=== PATIENT | male | born 1945 | race Caucasian/White ===

== ENCOUNTER 2018-08-18 06:18 | Day surgery (SDC) | payer MEDICARE, OTHER ==
[~2018-08-18 06:18] MED LIST: Cyclopentolate 1% Opth Drop 2 ML BOT FS SCH; EPINEPHrine 0.3 MG in Ophthalmic Irrigation Solution 500 ML FS SCH; Fentanyl 100 MCG/2 ML VIAL ONE; Midazolam HCl 2 mg/2 ml Vial ONE; PROPOFOL 20 ML ONE; Phenylephrine 2.5% Ophth Soln 5 ML BOT FS SCH
[2018-08-18] MEDS ORDERED: Cyclopentolate 1% Opth Drop 2 ML BOT ONE (07:03)
[2018-08-18] MEDS ORDERED: Phenylephrine 2.5% Ophth Soln 5 ML BOT ONE (07:03)
[2018-08-18] MEDS ORDERED: PROPOFOL 200 MG/20 ML VIAL ONE (10:18)
[2018-08-18] MEDS ORDERED: Lidocaine 1% PF 5 ML VIAL ONE (10:18)
[2018-08-18] MEDS ORDERED: Triamcinolone 40 MG/ML VIAL ONE (10:18)
[2018-08-18] MEDS ORDERED: Lidocaine 4% PF 5 ML AMP ONE (10:18)
[2018-08-18] MEDS ORDERED: CEFAZOLIN 1 GM VIAL ONE (10:18)
[2018-08-18] MEDS ORDERED: Bupivacaine 0.75% 10 ML AMP ONE (10:18)
[2018-08-18] MEDS ORDERED: Maxitrol 0.1% Opth Oint 3.5 GM TUBE ONE (10:18)
--- NOTE | 2018-08-18 14:23 | OP ---
DATE OF PROCEDURE: 08/18/2018 PREOPERATIVE DIAGNOSIS: Vitreous opacification. POSTOPERATIVE DIAGNOSIS: PROCEDURE IN DETAIL: The patient was prepped and draped in the usual sterile manner for ophthalmic s urgery on the eye. Lid speculum was placed in the eye. The 25-gauge trocars were placed in co njunctiva and sclera supratemporally, inferotemporally and supranasally. Infusion line was placed in ferotemporally. Light pipe and vitreous cutter inserted into the eye. Core vitrectomy was performed . Vitreous membranes were removed with vitreous cutter. Indirect ophthalmoscopy was used to examine the retina at 360 degrees. Prophylactic laser was placed behind the sclerotomy site supratemporally and inferotemporally. Trocars were removed. . Retrobulbar Kenalog and subconjunctival Ancef was placed. The eye was patched and shielded. The patient was taken to the postoperative rupa very unit in good condition having suffered no immediate perioperative complications. DISCHARGE INSTRUCTIONS: The patient instructed to keep patch and shield on, avoid lifting or bending , and follow up with Dr. Land.
== END 2018-08-18 08:54 | disposition home or self-care (01) ==
LOC: SDC 06:18
PROVIDERS: ATTEND Ophthalmology Retina Specialist
PROC: 08T43ZZ Resection of Right Vitreous, Percutaneous Approach (ICD-10-PCS; principal; 2018-08-18)
PROC: 08NE3ZZ Release Right Retina, Percutaneous Approach (ICD-10-PCS; 2018-08-18)
DX: H43.311 Vitreous membranes and strands, right eye (principal); Z79.899 Other long term (current) drug therapy
CPT/HCPCS: J0171; J2250; J2704; J3010